=== PATIENT | male | born 1950 | race Caucasian/White ===

== ENCOUNTER → 2018-06-23 | Outpatient (CLI) | payer MEDICARE ==
[~2018-06-23] MED LIST: REGADENOSON 0.4 MG/5 ML DISP.SYRIN. IV ONE
--- NOTE | 2018-06-23 09:38 | PCVCIMAG ---
APPROVED REPORT Study performed: 06/23/2018 07:58:33 EXAM: Comprehensive 2D, Doppler, and color-flow Echocardiogram Patient Location: Echo lab Status: routine BSA: 2.00 HR: 86 bpmBP: 110/70 mmHg Rhythm: NSR Other Information Study Quality: Technically Difficult Risk Factors: Cardiac Risk Factors: Hyperlipidemia Indications Elevated calcium score, History of prostate cancer, Hyperlipidemia 2D Dimensions IVSd: 9.26 (7-11mm)LVOT Diam: 19.67 (18-24mm) LVDd: 47.46 mm PWd: 9.14 (7-11mm)Ascending Ao: 36.97 (22-36mm) LVDs: 36.37 (25-40mm) Left Atrium: 31.93 (27-40mm) Aortic Root: 31.47 mm LV Single Plane 4CH: 55.45 % LV Single Plane 2CH: 55.59 % Biplane EF: 53.7 % Volumes Left Atrial Volume (Systole) Single Plane 4CH: 11.80 mLSingle Plane 2CH: 12.12 mL LA ESV Index: 10.00 mL/m2 Aortic Valve AoV Peak Campbell.: 1.15 m/s AO Peak Gr.: 5.32 mmHgLVOT Max P.30 mmHg LVOT Max V: 0.76 m/s SHIV Vmax: 2.00 cm2 Mitral Valve E/A Ratio: 0.7 MV Decel. Time: 235.65 ms MV E Max Campbell.: 0.47 m/s MV A Campbell.: 0.63 m/s IVRT: 131.49 ms TDI E/Lateral E': 5.22E/Medial E': 5.22 Medial E' Campbell.: 0.09 m/s Lateral E' Campbell.: 0.09 m/s Pulmonary Valve PV Peak Gr.: 3.81 mmHg Pulmonary Vein P Vein S: 0.77 m/sP Vein A: 0.53 m/s P Vein D: 0.39 m/sP Vein A Dur.: 96.9 msec P Vein S/D Ratio: 1.97 Tricuspid Valve TR Peak Campbell.: 2.53 m/s TR Peak Gr.: 25.55 mmHg TV Vmax: 2.60 m/s Left Ventricle The left ventricle is normal size. There is normal LV segmental wall motion. There is normal left ventricular wall thickness. Left ventricular systolic function is normal. The left ventricular ejection fraction is within the normal range. LVEF is 55-60%. The left ventricular diastolic function is normal. Right Ventricle The right ventricle is normal size. The right ventricular systolic function is normal. Atria The left atrium size is normal. The right atrium size is normal. Aortic Valve The aortic valve is normal in structure. No aortic regurgitation is present. There is no aortic valvular stenosis. Mitral Valve The mitral valve is normal in structure. There is no mitral valve regurgitation noted. No evidence of mitral valve stenosis. Tricuspid Valve The tricuspid valve is normal in structure. Trace tricuspid regurgitation. Pulmonary artery pressure is 32mmHg. Pulmonic Valve The pulmonary valve is normal in structure. There is no pulmonic valvular regurgitation. Great Vessels The aortic root is normal in size. IVC is normal in size and collapses >50% with inspiration. Pericardium There is no pericardial effusion. <Conclusion> The left ventricle is normal size. LVEF is 55-60%. The aortic valve is normal in structure. The mitral valve is normal in structure. The tricuspid valve is normal in structure. Trace tricuspid regurgitation. Pulmonary artery pressure is 32mmHg. The pulmonary valve is normal in structure. There is no pericardial effusion.
--- NOTE | 2018-06-23 12:47 | PCVCIMAG ---
APPROVED REPORT Imaging Protocol: Rest Tc-99m/Stress Tc-99m 1 day Study performed: 06/23/2018 08:50:41 Indication: High Ca Score Patient Location: Out-Patient Stress Nurse: Leidy Spaulding RN SC Tech:Agathapratibha Byrd [facility] Ht: 5 ft 10 in Wt: 180 lbs BSA: 2.00 m2 HR: 78 bpm BP: 130/79 mmHg BMI: 25.82 Rhythm: Normal Sinus Rhythm Medical History Medical History: Hyperlipidemia, PVD (AAA), Current Smoker Medications: Albuterol, ASA, Casodex, Flomax, Tramadol, Chantix Allergies: No known drug allergies Cardiac Risk Factors: Age Pretest Chest Pain Characteristics: No chest pain Exercise History: Indeterminate Resting Data Rest SPECT myocardial perfusion imaging was performed in supine position 45 minutes following the intravenous injection of 10.5 mCi of Tc-99m Sestamibi. Time of rest injection: 0845 Date: 06/23/2018 Administration Route: IV Administration Site: Right AC Pharmacologic Stress Pharmacologic stress test was performed by injecting Regadenoson 0.4 mg IV push over 10-15 seconds immediately followed by the intravenous injection of 31.9 mCi of Tc-99m Sestamibi. Time of stress injection: 1000 Date: 06/23/2018 Administration Route: IV Administration Site: Right AC Gated Stress SPECT was performed 45 minutes after stress injection. The images were gated to evaluate regional wall motion and calculate left ventricular ejection fraction. Stress Test Details Stress Test: Pharmacologic stress testing performed using 0.4 mg of regadenoson per 5 mL given IV over 10 seconds. Reason for pharmacologic stress test: Vertebral compression factures. HRMax Heart Rate (APMHR): 153 bpm Resting HR: 78 bpmTarget HR (85% APMHR): 130 bpm Max HR Achieved: 105 bpm % of APMHR: 68 Recovery HR: 91 bpm BP Resting BP: 130/79 mmHg Max BP: 111/51 mmHg Recovery BP: 112/55 mmHg ECG Resting ECG: Normal Sinus Rhythm Stress ECG: Sinus Tachycardia Arrhythmia: Rare PVC's Recovery ECG: Sinus Rhythm Clinical Reason for Termination: Completed protocol Stress Symptoms: Dyspnea Exercise duration: 0 min 55 sec Symptoms resolved during recovery. Stress ECG Conclusion 1. adequate response to iv lexiscan 2. inadequate heart rate for ecg diagnosis Study Data Post stress, the left ventricular ejection was 69%.. SSS: 5 SRS: 4 SDS: 2 TID = 0.85. Perfusion There is a large area of moderately reduced uptake in the entire segment of the inferior wall which is seen on the stress images as well as the resting images. This area thickens and moves normally and is most consistent with attenuation artifact. Wall Motion Normal left ventricular wall motion. Nuclear Conclusion ECG Findings: non-diagnostic Clinical Findings: negative for ischemia Nuclear Findings: negative for ischemia Exercise Capacity: not assessed Left Ventricular Function: normal 1. low risk study <Conclusion> 1. adequate response to iv lexiscan 2. inadequate heart rate for ecg diagnosis
== END | disposition home or self-care (01) ==
LOC: PCVCIMAG 08:28
PROVIDERS: ATTEND Internal Medicine
DX: R93.1 Abnormal findings on diagnostic imaging of heart and coronary circulation (principal); E78.5 Hyperlipidemia, unspecified; Z85.46 Personal history of malignant neoplasm of prostate
CPT/HCPCS: 78452; 93017; 93306; A9500; J2785

== ENCOUNTER → 2018-07-10 | Outpatient (CLI) | payer MEDICARE | END | disposition home or self-care (01) | LOC: PCVCCLINIC 11:02 | PROVIDERS: ATTEND Internal Medicine | DX: E78.5 Hyperlipidemia, unspecified (principal); R93.1 Abnormal findings on diagnostic imaging of heart and coronary circulation; I73.9 Peripheral vascular disease, unspecified; J42 Unspecified chronic bronchitis; M81.0 Age-related osteoporosis without current pathological fracture; F17.200 Nicotine dependence, unspecified, uncomplicated; E78.00 Pure hypercholesterolemia, unspecified; Z79.82 Long term (current) use of aspirin; Z79.899 Other long term (current) drug therapy | CPT/HCPCS: 36415; 80061; G0463 ==

== ENCOUNTER → 2019-01-12 | Outpatient (CLI) | payer MEDICARE | END | disposition home or self-care (01) | LOC: PCVCCLINIC 13:00 | PROVIDERS: ATTEND Internal Medicine | DX: I25.10 Atherosclerotic heart disease of native coronary artery without angina pectoris (principal); R93.1 Abnormal findings on diagnostic imaging of heart and coronary circulation; E78.5 Hyperlipidemia, unspecified; I71.4 Abdominal aortic aneurysm, without rupture | CPT/HCPCS: 36415; 80061; 93005; G0463 ==